=== PATIENT | male | born 1990 | race Hispanic/Latino ===

== ENCOUNTER 2024-01-02 09:56 | Emergency (ER) | payer SELFPAY ==
[2024-01-02 09:58] VITALS: BP 111/68
[2024-01-02] MEDS: MOTRIN 600 MG PO (11:07)
[2024-01-02] MEDS: ADACEL 0.5 ML IM (11:18)
--- NOTE | 2024-01-02 11:21 | ED.GENMED ---
History of Present Illness
General
Chief Complaint: Skin Surface Trauma
Source: patient
Exam Limitations: none
Time Seen by Provider: 01/02/24 11:03
Travel History
Have you had any contact with someone who has COVID-19?: No
Do you have any symptoms of coronavirus? Fever > 100 degrees, chills, cough, shortness of breath, sore throat, loss of taste or smell, muscle aches, or headache?: No
History of Present Illness
History of Present Illness:
33-year-old male presents with laceration to left long finger he sustained today using a head trimmer. Last tetanus unknown. He denies loss of function or numbness or tingling
Phy Exam
Physical Exam
Physical Exam:
General: Well-appearing male no acute respiratory distress
HEENT: Normocephalic atraumatic
Skin: Laceration distal portion left long finger that involve the edge of the nail. These are ragged in nature no obvious tendon involvement
Musculoskeletal exam: Left long finger with intact flexion extension of the DIP joint
Neurologic: Good sensation left long finger
Course
Orders/Labs/Results
Orders:
Orders
01/02/24 10:14
CR Finger(s)/thumb Min 2 Vw Lt Urgent
Comment:
Reason For Exam: injury
Indicate Which Finger:: Middle Finger
01/02/24 11:03
Ibuprofen [Motrin] 600 mg PO NOW STA
01/02/24 11:13
Tetanus/Diphth/Acelpertussis [Adacel] 0.5 ml IM .ONCE ONE
01/02/24 12:07
Cephalexin Monohydrate [Keflex] 500 mg PO NOW STA
Vital Signs
Initial and Last Documented VS:
Initial Vital Signs
Temp Pulse Resp BP Pulse Ox
98.5 F 60 18 111/68 100
01/02/24 09:58 01/02/24 09:58 01/02/24 09:58 01/02/24 09:58 01/02/24 09:58
Last Documented Vital Signs
Temp Pulse Resp BP Pulse Ox
98.5 F 60 18 111/68 100
01/02/24 09:58 01/02/24 09:58 01/02/24 09:58 01/02/24 09:58 01/02/24 09:58
MDM/Problems Addressed
Differential Diagnosis Includes:
. Left long finger laceration. No tendon involvement will get x-ray to evaluate for bony involvement. Tetanus vaccine updated. The patient was given a digital block at the base of the finger using 1% lidocaine and 0.5% Marcaine for anesthesia
*Critical Care Note
Total Time (30-74mins, 75-104mins- exclusive of procedures): Not Applicable
Update Note
Update Note:
Digital block provided adequate anesthesia. The finger was then copiously irrigated with saline nonviable flaps skin were excised and the wound was closed with 5-0 Prolene sutures. Antibacterial ointment and gauze dressing was applied will advise
that he follow-up with [place] for further evaluation. Keflex prescribed. Length laceration told about 2 cm
ED Attending Note
-
Portions of this chart may have been created with voice recognition software.� Occasional wrong word or��sound alike� substitutions may have occurred due to the inherent limitations of voice recognition software.
Discharge Plan
Departure
Patient Disposition: Home (Routine Discharge)
Date of Disposition: 01/02/24
Time of Disposition: 12:13
Patient with high blood pressure during this ER visit?: No
Discharge Problem:
Laceration
Instructions: Laceration Repair With Stitches (DC)
Prescriptions:
New
cephalexin 500 mg tablet
500 mg PO Q8H 7 Days Qty: 21 0RF
Referrals:
Raymond Schultz MD [Active] -
Activity Restrictions/Additional Instructions:
Keep clean. Use antibiotics as directed. Use Tylenol or ibuprofen for pain. Follow-up with orthopedics for further evaluation.
Interventions
Interventions:
*Risk Screen - Suicide Last Done: 01/02/24 10:06
*General Assessment Last Done: 01/02/24 10:12
*Neglect/Abuse Screening Last Done: 01/02/24 10:06
ED- Fall Risk Assessment Last Done: 01/02/24 10:56
*ED COVID-19 Vaccine History Last Done: 01/02/24 10:06
ED-Skin Assessment Last Done: 01/02/24 10:56
Discharge Date and Time
Print Language: MALAGASY
[2024-01-02] MEDS: KEFLEX 500 MG PO (12:37)
== END 2024-01-02 12:38 | disposition home or self-care (01) ==
LOC: EMR 09:56
PROVIDERS: EMERGENCY PHYSICIAN Emergency Medicine
PROC: 0HQGXZZ Repair Left Hand Skin, External Approach (ICD-10-PCS; 2024-01-02)
DX: S61.313A Laceration without foreign body of left middle finger with damage to nail, initial encounter (principal); W29.3XXA Contact with powered garden and outdoor hand tools and machinery, initial encounter; Z23 Encounter for immunization
CPT/HCPCS: 64450; 99284; 12041; 90471; 73140; 90715